=== PATIENT | female | born 1950 | race Hispanic/Latino ===

== ENCOUNTER 2017-02-20 07:45 | Inpatient (IN) | payer MEDICARE ==
[2017-02-15 08:25] VITALS: BMI 36.9
[2017-02-20] MEDS ORDERED: Bacitracin 150,000 UNIT in Sodium Chloride 0.9% Irrig 3,000 ML IR SCH ×2 (09:56→09:57)
[2017-02-20] MEDS ORDERED: Bupivacaine Liposomal Inj 20 ml INFIL ONE (09:57)
[2017-02-20] MEDS ORDERED: Tranexamic Acid 100 mg/ml IV SCH (10:00)
--- NOTE | 2017-02-20 10:01 | CP.PCM.HP ---
History of Present Illness - History of Present Illness History of Present Illness: 66F with right knee DJD failed conservative mgmt and elected for TKR. PMH: HTN, hypothyroid, neuropathy PSH: hysterectomy, BTL, thyroidectomy, appendectomy No history of bleeding/clotting disorder, no history of DVT, blood clots, stents. denies dysuria/frequency Medical clearance on chart labs reviewed Present on Admission - Present on Admission Any Indicators Present on Admission: No Review of Systems - Review of Systems All systems: reviewed and no additional remarkable complaints except - Constitutional Additional comments: no recent illness Past Patient History - Infectious Disease Hx of Infectious Diseases: None - Tetanus Immunizations Tetanus Immunization: Unknown - Past Medical History & Family History Past Medical History?: Yes Past Family History: Reviewed and not pertinent - Past Social History Smoking Status: Former Smoker - CARDIAC Hx Cardiac Disorders: Yes Hx Hypertension: Yes - PULMONARY Hx Respiratory Disorders: No - NEUROLOGICAL Hx Neurological Disorder: Yes Other/Comment: Neuropathy - HEENT Hx HEENT Problems: No - RENAL Hx Chronic Kidney Disease: No - ENDOCRINE/METABOLIC Hx Endocrine Disorders: Yes Hx Hypothyroidism: Yes Other/Comment: HX: GOITER-THYROID REMOVED - HEMATOLOGICAL/ONCOLOGICAL Hx Blood Disorders: No - INTEGUMENTARY Hx Dermatological Problems: No - MUSCULOSKELETAL/RHEUMATOLOGICAL Hx Musculoskeletal Disorders: Yes Hx Arthritis: Yes Hx Falls: No Hx Osteoarthritis: Yes - GASTROINTESTINAL Hx Gastrointestinal Disorders: No - GENITOURINARY/GYNECOLOGICAL Hx Genitourinary Disorders: No - PSYCHIATRIC Hx Psychophysiologic Disorder: No - SURGICAL HISTORY Hx Surgeries: Yes Hx Appendectomy: Yes (AT AGE 10YRS. OLD) Hx Hysterectomy: Yes Hx Thyroidectomy: Yes (AT AGE 18YRS. OLD-FROM GOITER) Hx Tonsillectomy: Yes (AT AGE 2YRS. OLD) - ANESTHESIA Hx Anesthesia: Yes Hx Anesthesia Reactions: No Hx Malignant Hyperthermia: No Meds Allergies/Adverse Reactions: Allergies Allergy/AdvReac Type Severity Reaction Status Date / Time amoxicillin [From Augmentin] Allergy Severe VOMITING Verified 02/16/17 10:27 clavulanic acid Allergy Severe ANAPHYLAXIS Verified 11/29/16 17:33 Sulfa (Sulfonamide Allergy Severe ITCHING Verified 02/16/17 10:27 Antibiotics) Physical Exam - Constitutional Appears: Well, No Acute Distress - Respiratory Exam Respiratory Exam: NORMAL BREATHING PATTERN - Extremities Exam Additional comments: no erythema calves soft NT neg homans +DP/PT pulses +ROM ankle/toes - Expanded Lower Extremities Exam Right Neuro vacular tendon exam: no vascular compromise - Neurological Exam Neurological exam: Alert, Oriented x3 - Psychiatric Exam Psychiatric exam: Normal Affect, Normal Mood - Skin Skin Exam: Dry, Intact, Normal Color, Warm Results - EKG Data EKG Interpreted by: Other EKG shows normal: Sinus rhythm Rate: Normal - Impressions Impression: atient Name / ID : ANTOINETTE Garibay / [id number] Exam Date : 01/28/2017 07:35:08 ( Approved ) Study Comment : Sex / Age : F / 66Y Creator : Alok Mendoza MD Dictator : Alok Mendoza MD Pyridine Recovery Operator : Rework Operator : Alok Mendoza MD Approver2 : Report Date : 01/28/2017 08:27:41 My Comment : HISTORY: M17.12 COMPARISON: No prior. TECHNIQUE: Chest PA and lateral FINDINGS: LUNGS: No active pulmonary disease. PLEURA: No significant pleural effusion identified. No pneumothorax apparent. CARDIOVASCULAR: Normal. OSSEOUS STRUCTURES: No significant abnormalities. VISUALIZED UPPER ABDOMEN: Normal. OTHER FINDINGS: None. IMPRESSION: No active disease. Assessment & Plan (1) Primary osteoarthritis of right knee Assessment and Plan: NPO for TKR T&S Status: Acute (2) HTN (hypertension) Assessment and Plan: cont home meds Status: Chronic (3) Hypothyroid Assessment and Plan: cont home meds Status: Chronic (4) Peripheral neuropathy Assessment and Plan: cont lyrica Status: Chronic
[2017-02-20] MEDS ORDERED: Lactated Ringer's 1,000 ML IV ONE ×2 (10:05→13:30)
[2017-02-20] MEDS ORDERED: Propofol 10 mg/ml Inj (20 ML) ONE (10:34)
[2017-02-20] MEDS ORDERED: Clindamycin 600mg/50ml D5W 600 MG/50 ML VIAL IVPB ONE ×2 (11:02)
[2017-02-20] MEDS ORDERED: Sodium Chloride 0.9% 60 ML IV ONE (11:35)
[2017-02-20] MEDS ORDERED: Vancomycin 1 g Inj ONE (12:24)
[2017-02-20] MEDS ORDERED: Rocuronium 10 mg/ml (10 ml) ONE (13:02)
[2017-02-20] MEDS ORDERED: Neostigmine Methylsulfate 3mg/3ml Syringe IV ONE (13:16)
[2017-02-20] MEDS ORDERED: HYDROmorphone 1 mg/ml ISec IVP PRN (13:59)
[2017-02-20] MEDS ORDERED: Clindamycin 600mg/50ml D5W 600 MG/50 ML VIAL IVPB SCH (14:00)
--- NOTE | 2017-02-20 14:04 | PCM.SURG1 ---
Surgeon's Initial Post Op Note - Surgeon's Notes Surgeon: Taylor Francois MD Nuclear Operations Specialist: Macy Kirk PA-C Type of Anesthesia: General Endo Anesthesia Administered By: Dr. Xavier Pre-Operative Diagnosis: Right knee DJD Operative Findings: tourniquet 75 min @ 300mmHg Post-Operative Diagnosis: same Operation Performed: Right TKR Specimen/Specimens Removed: bone Estimated Blood Loss: EBL {In ML}: 125 Blood Products Given: N/A Drains Used: Hemovac Post-Op Condition: Fair Date of Surgery/Procedure: 02/20/17 Time of Surgery/Procedure: 14:04
[2017-02-20] MEDS ORDERED: Bupivacaine HCl 0.25% PF (10 ml) Inj ONE (14:16)
[2017-02-20] MEDS ORDERED: HYDROmorphone 0.5 mg/0.5 ml ISec IVP PRN (14:17)
[2017-02-20] MEDS ORDERED: Sodium Chloride 0.9% 1,000 ML IV ONE (15:25)
--- NOTE | 2017-02-20 15:43 | RAD ---
PROCEDURE: Right Knee Radiographs. HISTORY: s/p TKR pt in pacu COMPARISON: None. FINDINGS: BONES: Status post total knee arthroplasty femoral and tibial prostatic components satisfactory position. Tibial stem cemented. Overlying drainage tubing and anterior skin sutures in place. Suprapatellar joint effusion inferred. No fracture. JOINTS: Status post total knee arthroplasty JOINT EFFUSION: Yes OTHER FINDINGS: None. IMPRESSION: Status post total knee arthroplasty - normal anatomical alignment
[2017-02-20] MEDS: Oxycodone/Acetaminophen 5/325 mg Tab PO PRN (17:51)
[2017-02-20] MEDS: Clindamycin 600mg/50ml D5W 600 MG/50 ML VIAL IVPB SCH (19:46)
[2017-02-21] MEDS: Oxycodone/Acetaminophen 5/325 mg Tab PO PRN ×4 (00:18→20:51)
--- NOTE | 2017-02-21 02:20 | OP ---
PROCEDURE DATE: 02/20/2017 PREOPERATIVE DIAGNOSIS: Right knee osteoarthritis. POSTOPERATIVE DIAGNOSIS: Right knee osteoarthritis. PROCEDURE: Right total knee arthroplasty. SURGEON: Dr. Erasto Francois OPTOMETRIC AIDE: Gurjit Alvarado, physician central supply assistant and the 3rd year medical student. Ms. Alvarado was present and scrubbed throughout the case and helped with preoperative patient positioning, retraction throughout the case, and wound closure. ANESTHESIA: General. COMPLICATIONS: None. ESTIMATED BLOOD LOSS: 125 mL. TOURNIQUET TIME: 74 minutes at 300 mmHg. IMPLANT: Biomet Vanguard total knee system. INDICATIONS FOR PROCEDURE: This is a 66-year-old female who presented with longstanding right knee pain. Clinical examination was consistent with some joint line tenderness, some peripatellar tenderness, and pain with patellofemoral grind. A radiographic evaluation was consistent with degenerative joint disease. After failed nonsurgical management, recommendation was made for right total knee arthroplasty. The risks, benefits, and alternatives of the procedure were discussed with the patient and informed consent was obtained. OPERATIVE PROCEDURE: After surgical site was finally identified in the preoperative holding area, the patient was taken to the operating room and placed supine on the operating room table. After administration of general anesthesia, Kelly catheter was inserted. The patient received 900 mg of clindamycin IV . A tourniquet was placed about the right thigh. Care was taken to make sure all bony prominences and areas were well padded and protected and the right lower extremity was prepped and draped in the usual sterile fashion. The right lower extremity was exsanguinated and the tourniquet was inflated. Approximately 10 cm long midline incision was made. Soft tissues were dissected sharply down to the knee joint. A medial parapatellar arthrotomy was performed. The medial and lateral menisci, the anterior fat pad, and the ACL and PCL were all resected. Once the medial knee had been adequately exposed, a step drill was used to drill into the medullary canal of the distal femur. The intramedullary distal cutting guide was inserted and distal femoral cutting guide was inserted and pinned to place. A distal femoral resection was performed. Next, our femoral component was sized and the 4-in-1 cutting block was placed. The anterior and posterior cuts were performed and our box cut was performed. At this point, attention was directed to the tibia. The extramedullary tibial guide was inserted and pinned into place. Satisfied with our alignment, our tibial resection was performed. Our flexion and extension gaps were then checked. The patient was noted to have full flexion and extension and stable with both varus and valgus stress. Next, the medullary canal of the proximal tibia was reamed and punched with a cruciate punch. At this point, with the trial tibia, trial femur, and a trial bearing in place, the knee was taken through range of motion and was noted to have full extension and flexion and stable throughout. Our attention was directed to the patella and the thickness of the patella was measured and patellar resection was performed. The patellar bone was size and the holes for our patellar bone were placed. The trial patella was inserted and the knee was taken through range of motion. The patient was noted to have some lateral tilt and this was corrected by performing a lateral retinacular release. At this point, all the trial components were removed, and the knee joint was pulse lavaged with antibiotic saline solution. The bony surfaces were dried and the actual tibial, femoral, and patellar components were cemented into place. Care was taken to remove all excess cement. Once the cement had hardened, the wound was inspected for any debris and pulse lavaged again. The actual bearing was then inserted and locked into place with a cross-pin. Tourniquet was deflated and any obvious bleeding was cauterized. A medium Hemovac drain was inserted and arthrotomy was closed using #1 Vicryl suture. The subcutaneous tissue was closed using #0 and #2-0 Vicryl suture and the skin was closed using aspen. Sterile dressing was applied and a knee immobilizer was placed. The patient was awakened from the procedure and taken to the recovery room in a stable condition. Erasto Francois MD
[2017-02-21] MEDS: Clindamycin 600mg/50ml D5W 600 MG/50 ML VIAL IVPB SCH (02:49)
[2017-02-21] MEDS: Sodium Chloride 0.9% 1,000 ML IV SCH ×2 (02:50→02:53)
[2017-02-21 07:11] LABS: HEMOGLOBIN 11.7 g/dL (11.0-16.0); MEAN CORPUSCULAR HEMOGLOBIN 28.6 pg (27.0-31.0); MEAN CORPUSCULAR HGB CONC 33.2 g/dL (33.0-37.0); MEAN PLATELET VOLUME 8.5 fL (7.2-11.7); RBC 4.11 Mil/uL (3.80-5.20); RED CELL DISTRIBUTION WIDTH 13.9 % (11.5-14.5); WHITE BLOOD COUNT 19.2 K/uL (4.8-10.8)
[2017-02-21 07:23] LABS: BLOOD UREA NITROGEN 25 mg/dL (7-17); CALCIUM 8.1 mg/dl (8.6-10.4); GFR AFRICAN-AMERICAN > 60; GFR NON-AFRICAN AMERICAN > 60
--- NOTE | 2017-02-21 09:32 | CP.PCM.PN ---
Subjective - Date & Time of Evaluation Date of Evaluation: 02/21/17 Time of Evaluation: 09:30 - Subjective Subjective: Pt doing well. Denies significant pain. Afebrile RLE: dressing intact. drain in place immobilizer in place NVI distally Kelly in place POD#1 D/c Kelly PT Eliquis check labs in AM Objective - Vital Signs/Intake and Output Vital Signs (last 24 hours): Temp Pulse Resp BP Pulse Ox 97.3 F L 64 20 113/70 94 L 02/21/17 07:30 02/21/17 07:30 02/21/17 07:30 02/21/17 07:30 02/21/17 07:30 Intake and Output: 02/21/17 02/21/17 06:59 18:59 Intake Total 1000 Output Total 1080 Balance -80 - Medications Medications: Current Medications Acetaminophen (Tylenol 325mg Tab) 650 mg PO Q4 PRN PRN Reason: Fever 101 degrees fahrenheit Amlodipine Besylate (Norvasc) 10 mg PO DAILY [facility] Docusate Sodium (Colace) 100 mg PO BID [facility] Last Admin: 02/20/17 17:51 Dose: 100 mg Enoxaparin Sodium (Lovenox) 40 mg SC Q24H [facility] Hydromorphone HCl (Dilaudid) 1 mg IVP Q4H PRN PRN Reason: Pain, severe (8-10) Levothyroxine Sodium (Synthroid) 150 mcg PO DAILY@0630 [facility] Oxycodone/Acetaminophen (Percocet 5/325 Mg Tab) 2 tab PO Q4H PRN PRN Reason: Pain, moderate (4-7) Stop: 02/23/17 14:00 Last Admin: 02/21/17 08:39 Dose: 2 tab Pregabalin (Lyrica) 50 mg PO BID [facility] Last Admin: 02/20/17 17:51 Dose: 50 mg Triamterene/HCTZ (Dyazide 25 Mg-37.5 Mg) 1 cap PO DAILY [facility] - Labs Labs: 02/21/17 06:39 02/21/17 06:39
[2017-02-21] MEDS: hydroCHLOROthiazide-Triamterene 25 mg-37.5 mg Cap UD PO SCH (10:39)
[2017-02-21] MEDS: Levothyroxine 150 MCG TAB PO SCH (10:39)
[2017-02-21] MEDS ORDERED: Enoxaparin 40 mg Syringe SC SCH (13:00)
[2017-02-22] MEDS: Oxycodone/Acetaminophen 5/325 mg Tab PO PRN ×3 (04:03→17:04)
[2017-02-22] MEDS: Levothyroxine 150 MCG TAB PO SCH (05:35)
--- NOTE | 2017-02-22 08:06 | CP.PCM.PN ---
Subjective - Date & Time of Evaluation Date of Evaluation: 02/22/17 Time of Evaluation: 08:02 - Subjective Subjective: Patient states that pain is well controlled. Denies CP/SOB/dizziness/n/v/ numbness/tingling. Objective - Vital Signs/Intake and Output Vital Signs (last 24 hours): Temp Pulse Resp BP Pulse Ox 98.1 F 65 20 115/72 94 L 02/21/17 23:40 02/21/17 23:40 02/21/17 23:40 02/21/17 23:40 02/21/17 23:40 Intake and Output: 02/22/17 02/22/17 06:59 18:59 Output Total 170 Balance -170 - Medications Medications: Current Medications Acetaminophen (Tylenol 325mg Tab) 650 mg PO Q4 PRN PRN Reason: Fever 101 degrees fahrenheit Amlodipine Besylate (Norvasc) 10 mg PO DAILY [facility] Last Admin: 02/21/17 10:39 Dose: 10 mg Apixaban (Eliquis) 2.5 mg PO Q12H [facility] Last Admin: 02/21/17 22:07 Dose: 2.5 mg Docusate Sodium (Colace) 100 mg PO BID [facility] Last Admin: 02/21/17 18:21 Dose: 100 mg Hydromorphone HCl (Dilaudid) 1 mg IVP Q4H PRN PRN Reason: Pain, severe (8-10) Levothyroxine Sodium (Synthroid) 150 mcg PO DAILY@0630 [facility] Last Admin: 02/22/17 05:35 Dose: 150 mcg Oxycodone/Acetaminophen (Percocet 5/325 Mg Tab) 2 tab PO Q4H PRN PRN Reason: Pain, moderate (4-7) Stop: 02/23/17 14:00 Last Admin: 02/22/17 04:03 Dose: 2 tab Pregabalin (Lyrica) 50 mg PO BID [facility] Last Admin: 02/21/17 18:21 Dose: 50 mg Triamterene/HCTZ (Dyazide 25 Mg-37.5 Mg) 1 cap PO DAILY [facility] Last Admin: 02/21/17 10:39 Dose: 1 cap - Labs Labs: 02/21/17 06:39 02/21/17 06:39 - Constitutional Appears: Well, No Acute Distress - Extremities Exam Additional comments: Right knee: dressing changed, hemovac pulled. incision intact, no erythema, minimal swelling. Calves soft NT neg homans, +DP pulse - Skin Skin Exam: Normal Color, Warm Assessment and Plan (1) Primary osteoarthritis of right knee Assessment & Plan: POD#2 s/p right TKR -f/u labs, leukocytosis improving -PT/OT -plan d/c daisy 02/23 with home PT -eliquis for VTE proph -d/w Dr. Francois, agrees with above Status: Acute (2) HTN (hypertension) Assessment & Plan: cont home meds Status: Chronic (3) Hypothyroid Status: Chronic (4) Peripheral neuropathy Status: Chronic Results - Vital Signs Recent Vital Signs: Last Vital Signs Temp 97.9 F 02/22/17 08:07 Pulse 62 02/22/17 08:07 Resp 19 02/22/17 08:07 BP 122/73 02/22/17 08:07 Pulse Ox 95 02/22/17 08:07 - Labs Result Diagrams: 02/22/17 08:23 02/22/17 08:23 Labs: Laboratory Results - last 24 hr 02/22/17 02/22/17 02/22/17 06:33 08:23 08:23 WBC 16.5 H RBC 3.96 Hgb 11.7 Hct 34.4 MCV 86.9 MCH 29.5 MCHC 34.0 RDW 14.3 Plt Count 277 MPV 8.2 Sodium 133 Potassium 3.6 Chloride 94 L Carbon Dioxide 28 Anion Gap 15 BUN 22 H Creatinine 1.0 Est GFR ( Amer) > 60 Est GFR (Non-Af Amer) 55 POC Glucose (mg/dL) 122 H Random Glucose 118 H Calcium 8.3 L
[2017-02-22 08:29] LABS: HEMOGLOBIN 11.7 g/dL (11.0-16.0); MEAN CELL VOLUME 86.9 fL (81.0-99.0); MEAN CORPUSCULAR HEMOGLOBIN 29.5 pg (27.0-31.0); MEAN PLATELET VOLUME 8.2 fL (7.2-11.7); RBC 3.96 Mil/uL (3.80-5.20); RED CELL DISTRIBUTION WIDTH 14.3 % (11.5-14.5); WHITE BLOOD COUNT 16.5 K/uL (4.8-10.8)
[2017-02-22 08:46] LABS: BLOOD UREA NITROGEN 22 mg/dL (7-17); GFR AFRICAN-AMERICAN > 60; GFR NON-AFRICAN AMERICAN 55
[2017-02-22 08:47] LABS: CALCIUM 8.3 mg/dl (8.6-10.4)
[2017-02-23] MEDS: Oxycodone/Acetaminophen 5/325 mg Tab PO PRN ×2 (05:59→11:51)
[2017-02-23] MEDS: Levothyroxine 150 MCG TAB PO SCH (06:01)
[2017-02-23 06:38] LABS: HEMOGLOBIN 11.7 g/dL (11.0-16.0); MEAN CELL VOLUME 86.3 fL (81.0-99.0); MEAN CORPUSCULAR HEMOGLOBIN 29.3 pg (27.0-31.0); MEAN CORPUSCULAR HGB CONC 33.9 g/dL (33.0-37.0); MEAN PLATELET VOLUME 8.4 fL (7.2-11.7); RBC 4.01 Mil/uL (3.80-5.20); RED CELL DISTRIBUTION WIDTH 14.1 % (11.5-14.5); WHITE BLOOD COUNT 14.7 K/uL (4.8-10.8)
[2017-02-23 07:36] LABS: GFR AFRICAN-AMERICAN > 60; GFR NON-AFRICAN AMERICAN > 60
[2017-02-23 07:37] LABS: BLOOD UREA NITROGEN 13 mg/dL (7-17); CALCIUM 8.7 mg/dl (8.6-10.4)
--- NOTE | 2017-02-23 08:01 | CP.PCM.PN ---
Subjective - Date & Time of Evaluation Date of Evaluation: 02/23/17 Time of Evaluation: 08:00 - Subjective Subjective: Patient says she feels a little anxious about going home. Denies CP/SOB/ dizziness/n/v/numbness/tingling. Pain controlled, says it comes and goes. Objective - Vital Signs/Intake and Output Vital Signs (last 24 hours): Temp Pulse Resp BP Pulse Ox 98.5 F 69 18 122/77 95 02/23/17 07:57 02/23/17 07:57 02/23/17 07:57 02/23/17 07:57 02/23/17 07:57 - Medications Medications: Current Medications Acetaminophen (Tylenol 325mg Tab) 650 mg PO Q4 PRN PRN Reason: Fever 101 degrees fahrenheit Amlodipine Besylate (Norvasc) 10 mg PO DAILY [facility] Last Admin: 02/22/17 10:29 Dose: 10 mg Apixaban (Eliquis) 2.5 mg PO Q12H [facility] Last Admin: 02/22/17 22:07 Dose: 2.5 mg Docusate Sodium (Colace) 100 mg PO BID [facility] Last Admin: 02/22/17 17:04 Dose: 100 mg Hydromorphone HCl (Dilaudid) 1 mg IVP Q4H PRN PRN Reason: Pain, severe (8-10) Levothyroxine Sodium (Synthroid) 150 mcg PO DAILY@0630 [facility] Last Admin: 02/23/17 06:01 Dose: 150 mcg Oxycodone/Acetaminophen (Percocet 5/325 Mg Tab) 2 tab PO Q4H PRN PRN Reason: Pain, moderate (4-7) Stop: 02/23/17 14:00 Last Admin: 02/23/17 05:59 Dose: 2 tab Pregabalin (Lyrica) 50 mg PO BID [facility] Last Admin: 02/22/17 17:04 Dose: 50 mg Triamterene/HCTZ (Dyazide 25 Mg-37.5 Mg) 1 cap PO DAILY [facility] Last Admin: 02/21/17 10:39 Dose: 1 cap - Labs Labs: 02/23/17 06:29 02/23/17 06:29 - Constitutional Appears: Well, No Acute Distress - Extremities Exam Additional comments: Right knee: +ROM ankle/toes, sensation intact, +Dp/PT pulses, calves soft NT neg homans minimal incisional erythema, scant serous drainage, mild swelling as expected. small amount sang drainage from drain site. sterile gauze, tegaderm, marcello applied Assessment and Plan (1) Primary osteoarthritis of right knee Assessment & Plan: POD#3 s/p right TKR -WBC downtrending -minimal erythema, will discharge on clindamycin as per Dr. Francois -cont eliquis at home, patient to continue today with 11pm dose at home, instructed to call office with any questions -percocet for pain -[employer] [employer] patient report reviewed, last rx for tramadol December 2016. Patient counseled on the risks of addiction, physical or psychological dependence, and overdose associated with opioid drugs and the danger of taking opioid drugs with alcohol and other central nervous system depressants, and cautioned patient on storage and disposal. -keep incision clean, dry, change dressing daily -knee immobilizer at night, remove during day with aggressive ROM at home -home PT arranged -f/u Dr. Francois 7-10 days call for appointment [phone] -above d/w Dr. Francois, agrees with above Status: Acute (2) HTN (hypertension) Status: Chronic (3) Hypothyroid Status: Chronic (4) Peripheral neuropathy Status: Chronic
--- NOTE | 2017-02-23 08:50 | CP.PCM.DIS ---
Provider - Provider Date of Admission: 02/20/17 09:10 Attending physician: Erasto Francois MD Primary care physician: Dr. Diego Time Spent in preparation of Discharge (in minutes): 5 Diagnosis - Discharge Diagnosis (1) Primary osteoarthritis of right knee Status: Acute (2) HTN (hypertension) Status: Chronic (3) Hypothyroid Status: Chronic (4) Peripheral neuropathy Status: Chronic Hospital Course - Lab Results Lab Results: Most Recent Lab Values WBC 14.7 K/uL (4.8-10.8) H 02/23/17 06:29 RBC 4.01 Mil/uL (3.80-5.20) 02/23/17 06:29 Hgb 11.7 g/dL (11.0-16.0) 02/23/17 06:29 Hct 34.6 % (34.0-47.0) 02/23/17 06:29 MCV 86.3 fL (81.0-99.0) 02/23/17 06:29 MCH 29.3 pg (27.0-31.0) 02/23/17 06:29 MCHC 33.9 g/dL (33.0-37.0) 02/23/17 06:29 RDW 14.1 % (11.5-14.5) 02/23/17 06:29 Plt Count 274 K/uL (130-400) 02/23/17 06:29 MPV 8.4 fL (7.2-11.7) 02/23/17 06:29 Sodium 134 mmol/L (132-148) 02/23/17 06:29 Potassium 3.8 mmol/L (3.6-5.2) 02/23/17 06:29 Chloride 96 mmol/L (98-107) L 02/23/17 06:29 Carbon Dioxide 31 mmol/L (22-30) H 02/23/17 06:29 Anion Gap 11 (10-20) 02/23/17 06:29 BUN 13 mg/dL (7-17) 02/23/17 06:29 Creatinine 0.8 MG/DL (0.7-1.2) 02/23/17 06:29 Est GFR ( Amer) > 60 02/23/17 06:29 Est GFR (Non-Af Amer) > 60 02/23/17 06:29 POC Glucose (mg/dL) 122 mg/dL (65-110) H 02/22/17 06:33 Random Glucose 104 mg/dL (65-105) 02/23/17 06:29 Calcium 8.7 mg/dl (8.6-10.4) 02/23/17 06:29 Blood Type O POSITIVE 02/20/17 10:19 Antibody Screen Negative 02/20/17 10:19 - Hospital Course Hospital Course: 6 Fwith PMH: HTN,hypothyroidism, peripheral neuropathy with right knee osteoarthritis failed conservative management and elected for TKR. Postoperative imaging demonstrated acceptable position of prosthesis. HTN controlled throughout admission. Patient tolerated PT/OT well. Patient received VTE prophylaxis in the form of eliquis 2.5mg PO q12h and venodynes. Patient was instructed to maintain knee immobilizer at night, to remove during the day, and instructed patient to continue aggressive ROM of the knee. Home PT was arranged for patient, patient instructed to call office with any concerns, and to f/u 7-10 days call for appointment. Discharge Plan - Discharge Medications Prescriptions: Apixaban [Eliquis] 2.5 mg PO Q12H #60 tab Clindamycin [Cleocin] 300 mg PO Q6H #40 cap oxyCODONE/Acetaminophen [Percocet 5/325 mg Tab] 2 tab PO Q4H PRN #50 tab PRN Reason: Pain, Moderate (4-7) - Follow Up Plan Condition: GOOD Disposition: HOME/ ROUTINE
[2017-02-23] MEDS: hydroCHLOROthiazide-Triamterene 25 mg-37.5 mg Cap UD PO SCH (10:25)
[2017-02-23 15:22] VITALS: BP 128/75; PULSE 66; RESP 20; TEMP 98.9; O2SAT 96
[2017-02-23] MEDS ORDERED: Oxycodone/Acetaminophen 5/325 mg Tab PO ONE (19:32)
== END 2017-02-23 20:40 | disposition home or self-care (01) | DRG 470 ==
LOC: C.9S 09:10 → C.6T 14:19
PROVIDERS: ADMIT Orthopaedic Surgery; ATTEND Orthopaedic Surgery
PROC: 0SRC0J9 Replacement of Right Knee Joint with Synthetic Substitute, Cemented, Open Approach (ICD-10-PCS; principal; 2017-02-20 11:00)
DX: M17.11 Unilateral primary osteoarthritis, right knee (principal); G62.9 Polyneuropathy, unspecified; I10 Essential (primary) hypertension; E03.9 Hypothyroidism, unspecified; Z87.891 Personal history of nicotine dependence